=== PATIENT | female | born 1965 | race Caucasian/White ===

== ENCOUNTER 2020-05-04 15:00 | Emergency (ER) | payer BC ==
[2020-05-04] MEDS ORDERED: Acetaminophen/HYDROcodone 325-10 MG Tab PO ONE (15:01)
[2020-05-04] MEDS ORDERED: Ondansetron 4 MG/2 ML SDV IVPUSH ONE (15:10)
[2020-05-04] MEDS ORDERED: HYDROmorphone 0.5 MG/0.5 ML Syringe IVPUSH ONE (15:55)
[2020-05-04 16:04] LABS: ANION GAP 14.3 mEq/L (7-13); CHLORIDE,CL 102 mmol/L (98-107); SODIUM,NA 142 mmol/L (136-145)
[2020-05-04] MEDS ORDERED: Iopamidol 612 MG/ML 100 ML Bottle IVPUSH ONE (16:32)
--- NOTE | 2020-05-04 17:42 | CT ---
PROCEDURE INFORMATION: Exam: CT Abdomen And Pelvis With Contrast Exam date and time: 05/04/2020 4:42 PM Age: 54 years old Clinical indication: Other: Llq pain; Additional info: Left lower quadrand abdominal pain TECHNIQUE: Imaging protocol: Computed tomography of the abdomen and pelvis with contrast. Radiation optimization: All CT scans at this facility use at least one of these dose optimization techniques: automated exposure control; mA and/or kV adjustment per patient size (includes targeted exams where dose is matched to clinical indication); or iterative reconstruction. Contrast material: [id number]; Contrast volume: 100 ml; Contrast route: INTRAVENOUS (IV); COMPARISON: No relevant prior studies available. FINDINGS: Lungs: There are minor subpleural atelectatic densities in the dependent portions of the lungs. Liver: There is a focal, subcentimeter, right liver lobe hypodensity that cannot be further characterized on the current examination. Gallbladder and bile ducts: The gallbladder is contracted. There is no evidence of biliary ductal dilation. Pancreas: Somewhat ill-defined 16 mm low-density focus in the head of the pancreas may reflect a cyst or cluster of cysts , a more significant abnormality in the pancreas is not excluded. There is at least 1 other low-density focus in the head measuring 5 mm. Pancreatic duct is not dilated. Spleen: The spleen is normal. Adrenal glands: The adrenal glands are normal. Kidneys and ureters: 3.4 cm simple cyst in the right kidney. No further workup is recommended. There is a small low-density focus in the left kidney. This is too small to characterize. Statistically this likely reflects a benign cyst. This nonspecific left kidney focus measures 5 mm is posteriorly located. There is no evidence of hydronephrosis. Stomach and bowel: Non-specific/nonobstructive intestinal gas pattern. No specific small bowel or colonic abnormality is identified. The upper GI tract is normal. Appendix: A normal appendix is identified. Intraperitoneal space: There is no free intraperitoneal air. Trace free fluid in the dependent pelvisThere is no soft tissue abnormality seen. Vasculature: There is moderate diffuse calcific atherosclerotic plaque. There is no aortic aneurysm. Lymph nodes: There is no adenopathy. No pelvic adenopathy. Urinary bladder: Bladder is normal. Reproductive: The uterus is normal. No adnexal mass. Bones/joints: No acute bony findings are identified. Soft tissues: There is no soft tissue abnormality seen. IMPRESSION: 1. Abnormal pancreatic head. A cyst/cluster cysts may be present. More significant abnormalities are not ruled out. Recommend multiphase contrast enhanced MRI versus endoscopic ultrasound. At this point malignancy is not excluded. 2. No hydronephrosis. No urolithiasis. 3. Non-specific/nonobstructive intestinal gas pattern. Trace free fluid in the dependent cul-de-sac. 4. There is no evidence of colitis/diverticulitis. 5. A normal appendix is identified. 6. Nonspecific subcentimeter right lobe liver lesion. In a low-risk patient, this lesion is most likely to be benign and no further follow-up is recommended. In a high-risk patient, recommend follow-up MRI in 3-6 months (or earlier if warranted by the patients specific clinical circumstances). 7. 3.4 cm simple cyst in the right kidney. No further workup is recommended. 8. Subcentimeter low-density focus in the left kidney statistically reflects a benign cyst. No follow-up is recommended. COMMENTS: Consistent with the [employer]'s Incidental Findings Committee white paper (J Am Mar[employer]y Radiol 2018): Any incidental renal lesion less than 1 cm or classified as too small to characterize, or any incidental cystic renal lesion characterized as simple-appearing, is likely benign. No follow-up imaging is recommended for these lesions per consensus recommendations based on imaging criteria.
[2020-05-04] MEDS ORDERED: Pantoprazole 40 MG Vial IVPUSH ONE (17:59)
[2020-05-04] MEDS ORDERED: Acetaminophen/HYDROcodone 325-10 MG Tab ONE (18:07)
--- NOTE | 2020-05-04 18:09 | EDM.PDOC ---
ED HPI GENERAL MEDICAL PROBLEM - General Chief Complaint: Gastrointestinal Problem Stated Complaint: STOMACHE/ABDOMINAL PAIN Time Seen by Provider: 05/04/20 15:25 Source of Information: Reports: Patient History Limitations: Reports: No Limitations - History of Present Illness INITIAL COMMENTS - FREE TEXT/NARRATIVE: This 54 yo female patient reports to the ED with diffuse left sided abdominal pain. The patient reports her symptoms started about 1330 today and have continued to get worse. The patient also reports she is feeling nauseated at this time. The patient reports she has had increased stress over the past 4 months. The patient admits to drinking alcohol up to 12 beers every 2-3 nights. Onset: Today Duration: Hour(s):, Constant Location: Reports: Abdomen Quality: Reports: Other Severity: Moderate Improves with: Reports: None Worsens with: Reports: None Context: Reports: Other Associated Symptoms: Reports: No Other Symptoms Abdomen Pain Score (Numeric/FACES): 8 - Related Data Allergies Allergy/AdvReac Type Severity Reaction Status Date / Time adhesive tape Allergy Redness Verified 05/04/20 15:09 cephalexin Allergy Hives Verified 05/04/20 15:09 raspberry Allergy Nausea and Verified 05/04/20 15:09 Vomiting Home Meds: Home Meds Losartan Potassium 25 mg PO DAILY 05/04/20 [History] Temazepam 30 mg PO DAILY 05/04/20 [History] atorvaSTATin [Lipitor] 40 mg PO DAILY 05/04/20 [History] hydroCHLOROthiazide [Hydrochlorothiazide] 25 mg PO DAILY 05/04/20 [History] Past Medical History Cardiovascular History: Reports: Hypertension, Pulmonary Hypertension Social & Family History - Tobacco Use Tobacco Use Status *Q: Current Every Day Tobacco User Years of Tobacco use: 40 Packs/Tins Daily: 0.5 - Recreational Drug Use Recreational Drug Use: No ED ROS GENERAL - Review of Systems Review Of Systems: Comprehensive ROS is negative, except as noted in HPI. ED EXAM, GI/ABD - Physical Exam Exam: See Below Exam Limited By: No Limitations General Appearance: Alert, WD/WN, Moderate Distress Eyes: Bilateral: Normal Appearance, EOMI Ears: Normal External Exam, Normal Canal, Hearing Grossly Normal, Normal TMs Nose: Normal Inspection, Normal Mucosa, No Blood Throat/Mouth: Normal Inspection, Normal Lips, Normal Teeth, Normal Gums, Normal Oropharynx, Normal Voice, No Airway Compromise Head: Atraumatic, Normocephalic Neck: Normal Inspection, Supple, Non-Tender, Full Range of Motion Respiratory/Chest: No Respiratory Distress, Lungs Clear, Normal Breath Sounds, No Accessory Muscle Use, Chest Non-Tender Cardiovascular: Normal Peripheral Pulses, Regular Rate, Rhythm, No Edema, No Gallop, No JVD, No Murmur, No Rub GI/Abdominal Exam: Normal Bowel Sounds, Soft, Tender (left side of abdomen) (Female) Exam: Deferred Rectal (Female) Exam: Deferred Back Exam: Normal Inspection, Full Range of Motion, NT Extremities: Normal Inspection, Normal Range of Motion, Non-Tender, Normal Capillary Refill, No Pedal Edema Neurological: Alert, Oriented, CN II-XII Intact, Normal Cognition, Normal Gait, Normal Reflexes, No Motor/Sensory Deficits Psychiatric: Normal Affect, Normal Mood Skin Exam: Warm, Dry, Intact, Normal Color, No Rash Lymphatic: No Adenopathy Course - Vital Signs Last Recorded V/S: Last Vital Signs Temp 36.6 C 05/04/20 15:10 Pulse 65 05/04/20 15:10 Resp 16 05/04/20 15:10 BP Pulse Ox 100 05/04/20 15:10 - Orders/Labs/Meds Orders: Active Orders 24 hr Category Date Time Status CULTURE BLOOD [BC] Stat Lab 05/04/20 15:30 Received Labs: Laboratory Tests 05/04/20 05/04/20 05/04/20 Range/Units 15:30 15:30 15:30 WBC 9.4 (5.0-10.0) 10^3/uL RBC 4.67 (4.2-5.4) 10^6/uL Hgb 15.6 (12.0-16.0) g/dL Hct 45.5 (37.0-47.0) % MCV 97.4 (80-100) fL MCH 33.4 (27.0-34.0) pg MCHC 34.3 (33.0-35.0) g/dL Plt Count 312 (150-450) 10^3/uL Neut % (Auto) 62.0 (42.2-75.2) % Lymph % (Auto) 26.7 (20.5-50.1) % [place] % (Auto) 9.0 H (2-8) % Eos % (Auto) 1.5 (1.0-3.0) % Baso % (Auto) 0.8 (0.0-1.0) % Sodium 142 (136-145) mmol/L Potassium 4.3 (3.5-5.1) mmol/L Chloride 102 (98-107) mmol/L Carbon Dioxide 30 (21-32) mmol/L Anion Gap 14.3 H (7-13) mEq/L BUN 18 (7-18) mg/dL Creatinine 0.78 (0.55-1.02) mg/dL Est Cr Clr Drug Dosing 72.47 mL/min Estimated GFR (MDRD) > 60 BUN/Creatinine Ratio 23.1 (No establ ref range) Glucose 92 (74-99) mg/dL Lactic Acid 0.7 (0.4-2.0) mmol/L Calcium 9.2 (8.5-10.1) mg/dL Total Bilirubin 0.5 (0.2-1.0) mg/dL AST 24 (15-37) U/L ALT 31 (14-59) U/L Alkaline Phosphatase 69 (46-116) U/L Total Protein 7.6 (6.4-8.2) g/dL Albumin 3.8 (3.4-5.0) g/dL Globulin 3.8 Albumin/Globulin Ratio 1.0 Amylase 72 (25-115) U/L Lipase 109 (73-393) U/L Urine Color (YELLOW) Urine Appearance (CLEAR) Urine pH (5.0-9.0) Ur Specific [place] (1.005-1.030) Urine Protein (NEGATIVE) Urine Glucose (UA) (NEGATIVE) Urine Ketones (NEGATIVE) Urine Occult Blood (NEGATIVE) Urine Nitrite (NEGATIVE) Urine Bilirubin (NEGATIVE) Urine Urobilinogen (0.2-1.0) mg/dL Ur Leukocyte Esterase (NEGATIVE) Urine RBC /HPF Urine WBC (0-5/HPF) /HPF Ur Epithelial Cells (NOT SEEN) /HPF Urine Bacteria (0-FEW/HPF) /HPF Urine Opiates Screen (NEGATIVE) Ur Oxycodone Screen (NEGATIVE) Urine Methadone Screen (NEGATIVE) Ur Barbiturates Screen (NEGATIVE) U Tricyclic Antidepress (NEGATIVE) Ur Phencyclidine Scrn (NEGATIVE) Ur Amphetamine Screen (NEGATIVE) U Methamphetamines Scrn (NEGATIVE) Urine MDMA Screen (NEGATIVE) U Benzodiazepines Scrn (NEGATIVE) Urine Cocaine Screen (NEGATIVE) U Marijuana (THC) Screen (NEGATIVE) 05/04/20 05/04/20 Range/Units 17:07 17:07 WBC (5.0-10.0) 10^3/uL RBC (4.2-5.4) 10^6/uL Hgb (12.0-16.0) g/dL Hct (37.0-47.0) % MCV (80-100) fL MCH (27.0-34.0) pg MCHC (33.0-35.0) g/dL Plt Count (150-450) 10^3/uL Neut % (Auto) (42.2-75.2) % Lymph % (Auto) (20.5-50.1) % [place] % (Auto) (2-8) % Eos % (Auto) (1.0-3.0) % Baso % (Auto) (0.0-1.0) % Sodium (136-145) mmol/L Potassium (3.5-5.1) mmol/L Chloride (98-107) mmol/L Carbon Dioxide (21-32) mmol/L Anion Gap (7-13) mEq/L BUN (7-18) mg/dL Creatinine (0.55-1.02) mg/dL Est Cr Clr Drug Dosing mL/min Estimated GFR (MDRD) BUN/Creatinine Ratio (No establ ref range) Glucose (74-99) mg/dL Lactic Acid (0.4-2.0) mmol/L Calcium (8.5-10.1) mg/dL Total Bilirubin (0.2-1.0) mg/dL AST (15-37) U/L ALT (14-59) U/L Alkaline Phosphatase (46-116) U/L Total Protein (6.4-8.2) g/dL Albumin (3.4-5.0) g/dL Globulin Albumin/Globulin Ratio Amylase (25-115) U/L Lipase (73-393) U/L Urine Color Yellow (YELLOW) Urine Appearance Clear (CLEAR) Urine pH 6.5 (5.0-9.0) Ur Specific [place] 1.015 (1.005-1.030) Urine Protein Negative (NEGATIVE) Urine Glucose (UA) Negative (NEGATIVE) Urine Ketones Negative (NEGATIVE) Urine Occult Blood Moderate H (NEGATIVE) Urine Nitrite Negative (NEGATIVE) Urine Bilirubin Negative (NEGATIVE) Urine Urobilinogen 0.2 (0.2-1.0) mg/dL Ur Leukocyte Esterase Negative (NEGATIVE) Urine RBC 0-5 /HPF Urine WBC Not seen (0-5/HPF) /HPF Ur Epithelial Cells Rare (NOT SEEN) /HPF Urine Bacteria Not seen (0-FEW/HPF) /HPF Urine Opiates Screen Negative (NEGATIVE) Ur Oxycodone Screen Negative (NEGATIVE) Urine Methadone Screen Negative (NEGATIVE) Ur Barbiturates Screen Negative (NEGATIVE) U Tricyclic Antidepress Negative (NEGATIVE) Ur Phencyclidine Scrn Negative (NEGATIVE) Ur Amphetamine Screen Negative (NEGATIVE) U Methamphetamines Scrn Negative (NEGATIVE) Urine MDMA Screen Negative (NEGATIVE) U Benzodiazepines Scrn Positive H (NEGATIVE) Urine Cocaine Screen Negative (NEGATIVE) U Marijuana (THC) Screen Negative (NEGATIVE) Meds: Medications Discontinued Medications Generic Name Dose Route Start Last Admin Trade Name Freq PRN Reason Stop Dose Admin Hydromorphone HCl 0.5 mg 05/04/20 15:55 05/04/20 16:01 Hydromorphone 0.5 Mg/0.5 Ml Syringe IVPUSH 05/04/20 15:56 0.5 mg ONETIME ONE Administration Iopamidol 100 ml 05/04/20 16:32 05/04/20 16:38 Iopamidol 612 Mg/Ml 100 Ml Bottle IVPUSH 05/04/20 16:33 100 ml ONETIME ONE Administration Ondansetron HCl 4 mg 05/04/20 15:10 05/04/20 15:39 Ondansetron 4 Mg/2 Ml Sdv IVPUSH 05/04/20 15:11 4 mg ONETIME ONE Administration Pantoprazole Sodium 80 mg 05/04/20 17:59 Pantoprazole 40 Mg Vial IVPUSH 05/04/20 18:00 .BOLUS ONE Departure - Departure Time of Disposition: 18:07 Disposition: Home, Self-Care 01 Condition: Fair Clinical Impression: Gastric ulcer Qualifiers: Gastric ulcer chronicity: acute Gastric ulcer complication status: unspecified whether hemorrhage or perforation present Qualified Code(s): K25.3 - Acute gastric ulcer without hemorrhage or perforation Abdominal pain Qualifiers: Abdominal location: generalized Qualified Code(s): R10.84 - Generalized abdomin al pain - Discharge Information *PRESCRIPTION DRUG MONITORING PROGRAM REVIEWED*: Not Applicable *COPY OF PRESCRIPTION DRUG MONITORING REPORT IN PATIENT CRISTY: Not Applicable Instructions: Peptic Ulcer, [id number], Abdominal Pain, Adult, [id number] Care Plan Goals: The patient was advised of the examination, lab and CT results during the visit. The patient was given an IV dose of Zofran and Dilaudid while in the ED. The patient was discharged with [place] (10) #2 to take 1 by mouth every 6 hours as needed for abdominal pain and a script for Omeprazole (20 mg) #30 to take 1 by mouth 30 minutes prior to eating daily. The patient was encouraged to follow- up with her primary care facility for continued evaluation and further management. If the patient has any additional symptoms or concerns, the patient should either return to the emergency department or visit her primary care facility. Sepsis Event Note (ED) - Evaluation Sepsis Screening Result: No Definite Risk - Focused Exam Vital Signs: Vital Signs Temp Pulse Resp Pulse Ox 05/04/20 15:10 36.6 C 65 16 100 - My Orders Last 24 Hours: My Active Orders 05/04/20 15:30 CULTURE BLOOD [BC] Stat - Assessment/Plan Last 24 Hours: My Active Orders 05/04/20 15:30 CULTURE BLOOD [BC] Stat
== END 2020-05-04 18:30 | disposition home or self-care (01) ==
LOC: DL.ED 15:00
DX: K25.3 Acute gastric ulcer without hemorrhage or perforation (principal); I27.20 Pulmonary hypertension, unspecified; Z72.0 Tobacco use; Z88.1 Allergy status to other antibiotic agents; Z91.048 Other nonmedicinal substance allergy status; Z91.018 Allergy to other foods; Z79.899 Other long term (current) drug therapy
CPT/HCPCS: 36415; 74177; 80053; 80305; 81001; 82150; 83605; 83690; 85025; 87040; 96374; 96375; 99284; A9270; C9113; J1170; J2405; Q9967

== ENCOUNTER 2024-11-25 15:32 | Emergency (ER) | payer BC ==
[2024-11-25] MEDS ORDERED: Sodium Chloride 0.9% 10 ML Syringe FLUSH PRN (15:45)
[2024-11-25 16:10] LABS: BASOPHILS PERCENT AUTO 1.0 % (0.0-1.0); EOSINOPHILS PERCENT AUTO 3.7 % (1.0-3.0); LYMPHOCYTES PERCENT AUTO 18.8 % (20.5-50.1); MONOCYTES PERCENT AUTO 10.0 % (2-8); NEUTROPHILS PERCENT AUTO 66.5 % (42.2-75.2); PLATELET COUNT,PLT 279 10^3/uL (150-450); RED BLOOD CELL COUNT 4.36 10^6/uL (4.2-5.4); WHITE BLOOD CELL COUNT,WBC 6.0 10^3/uL (5.0-10.0)
[2024-11-25 16:27] LABS: A/G RATIO 1.0; ALANINE AMINOTRANSFERASE,ALT 27.0 U/L (14-59); ASPARTATE AMNIOTRANSFERASE,AST 17.0 U/L (15-37); BILIRUBIN TOTAL 0.3 mg/dL (0.2-1.0); BLOOD UREA NITROGEN,BUN 18.0 mg/dL (7-18); CARBON DIOXIDE,CO2 28.0 mmol/L (21-32); CHLORIDE,CL 106.0 mmol/L (98-107); CREATININE 1.12 mg/dL (0.55-1.02); EST CRCL DRUG DOSING (CG) 47.46 mL/min; GLUCOSE RANDOM 95.0 mg/dL (70-99); INR 1.0 (0.9-1.2); POTASSIUM,K 4.5 mmol/L (3.5-5.1); PROTEIN TOTAL,TP 7.5 g/dL (6.4-8.2); PTT,PARTIAL THROMBOPLSTIN TIME 25.7 SEC (22.0-34.0); SODIUM,NA 141.0 mmol/L (136-145)
[2024-11-25 16:29] LABS: ESTIMATED GFR 56.0 mL/min (>=60)
[2024-11-25 16:31] LABS: LACTIC ACID 0.9 mmol/L (0.4-2.0)
[2024-11-25] MEDS: Take Home: Sulfamethoxazole/Trimethoprim 800-160 MG Tab, 6 Tab Pack PO ONE (17:02)
== END 2024-11-25 17:00 | disposition home or self-care (01) ==
LOC: DL.ED 15:32
DX: L03.114 Cellulitis of left upper limb (principal); I10 Essential (primary) hypertension; Z88.8 Allergy status to other drugs, medicaments and biological substances; Z79.899 Other long term (current) drug therapy; Z86.16 Personal history of COVID-19
CPT/HCPCS: 36415; 80053; 83605; 85025; 85610; 85730; 86140; 87040; 99283; A9270-GY